=== PATIENT | female | born 1960 | race Two or more races ===

== ENCOUNTER 2020-03-08 19:12 | Outpatient (CLI) | payer OTHER | END 2020-03-08 19:13 | disposition critical access hospital (66) | LOC: EMS 19:12 | PROVIDERS: ATTEND Surgery | DX: T43.212A Poisoning by selective serotonin and norepinephrine reuptake inhibitors, intentional self-harm, initial encounter (principal); R53.83 Other fatigue | CPT/HCPCS: A0425; A0427 ==

== ENCOUNTER 2020-03-08 19:50 | Emergency (ER) | payer OTHER ==
--- NOTE | 2020-03-08 20:10 | ED Physician Documentation ---
History of Present Illness - Stated complaint Stated Complaint: OD - History obtained from History obtained from: Family, EMS - History of Present Illness Timing: Prior to arrival - Additonal information Additional information: 59-year-old female brought into the emergency department for an intentional overdose this evening. It is reported that she may have taken up to sixty 50 mg tablets of trazodone. She has a longstanding history of alcohol abuse as well as previous suicide attempt. She recently completed a 30-day inpatient stay for alcohol abuse and was discharged 3 weeks ago. She relapsed and began drinking 2 weeks ago. EMS reports that she got into an argument with her this evening. When he left the home she took the trazodone. When he returned home she told him what she had done. She also reportedly vomited white foam into the toilet. She had been very alert and oriented for EMS as well as hemodynamically stable When I speak to the patient she is somnolent but easily arousable. She admits to taking the bottle of trazodone. She states she wanted to go to sleep and never wake up. She states that today she has drank 5 or 6 beers. She said she thought it was a small enough volume that her would not notice. Review of Systems Constitutional: reports: Reviewed and negative Nose: reports: Reviewed and negative Throat: reports: Reviewed and negative Cardiac: reports: Reviewed and negative Respiratory: reports: Reviewed and negative GI: reports: Reviewed and negative : reports: Reviewed and negative Skin: reports: Reviewed and negative Musculoskeletal: reports: Reviewed and negative Neurologic: denies: Generalized weakness, Focal weakness, Numbness, Difficulty speaking, Near syncope, Syncope, Seizure, Confused Psychiatric: reports: Depressed, Suicidal, Other (ETOH abuse). denies: Hallucinations, Delusions, Anxiety Endocrine: reports: Reviewed and negative PD PAST MEDICAL HISTORY - Allergies Allergies/Adverse Reactions: Allergies Allergy/AdvReac Type Severity Reaction Status Date / Time Sulfa (Sulfonamide Allergy Unknown Verified 03/08/20 20:16 Antibiotics) PD ED PE NORMAL - General General: Alert and oriented X 3, No acute distress, Well developed/nourished - HEENT HEENT: Atraumatic, EOMI, Moist mucous membranes - Neck Neck: Supple, no meningeal sign, No adenopathy - Cardiac Cardiac: RRR, No murmur - Respiratory Respiratory: No respiratory distress, Clear bilaterally - Abdomen Abdomen: Normal bowel sounds, Soft, Non tender, Non distended - Back Back: No CVA TTP - Derm Derm: Normal color, Warm and dry, No rash - Extremities Extremities: No deformity, No tenderness to palpate - Neuro Neuro: Alert and oriented X 3, assistant winemaker 2-12 intact, No motor deficit, No sensory deficit Eye Opening: To Voice Motor: Obeys Commands Verbal: Oriented GCS Score: 14 Results - Vitals Vitals: Vital Signs - 24 hr 03/08/20 03/08/20 20:16 21:17 Temperature 36.5 C Heart Rate 50 L 79 Respiratory 16 14 Rate Blood Pressure 121/57 L 158/58 H O2 Saturation 98 100 Oxygen O2 Source Room air - EKG (time done) 2009 Rate: Rate (enter#) (92) Rhythm: NSR [place]: Normal Intervals: Normal [place], Prolonged QT (? 604) QRS: Normal Ischemia: Non specific changes Compare to prior EKG: Old EKG unavailable Computer interpretation: Agree with computer - Labs Labs: Laboratory Tests 03/08/20 03/08/20 03/08/20 20:01 20:18 20:18 WBC 5.8 RBC 4.42 Hgb 13.8 Hct 40.8 MCV 92.3 MCH 31.2 H MCHC 33.8 RDW 13.8 Plt Count 290 MPV 9.5 Neut # (Auto) 4.5 Lymph # (Auto) 0.8 L [place] # (Auto) 0.3 Eos # (Auto) 0.1 Baso # (Auto) 0.1 Absolute Nucleated RBC 0.00 Nucleated RBC % 0.0 Sodium 140 Potassium 3.0 L Chloride 103 Carbon Dioxide 23 Anion Gap 14.0 H BUN 18 Creatinine 0.8 Estimated GFR (MDRD) 74 L Glucose 111 H Calcium 8.5 Magnesium 2.4 Total Bilirubin 0.6 AST 24 ALT 23 Alkaline Phosphatase 69 Total Protein 6.9 Albumin 4.1 Globulin 2.8 Albumin/Globulin Ratio 1.5 Lipase 46 TSH Urine Color Urine Clarity Urine pH Ur Specific [place] Urine Protein Urine Glucose (UA) Urine Ketones Urine Occult Blood Urine Nitrite Urine Bilirubin Urine Urobilinogen Ur Leukocyte Esterase Ur Microscopic Review Urine Culture Comments Salicylates < 6.0 Urine Opiates Screen Ur Oxycodone Screen Urine Methadone Screen Ur Propoxyphene Screen Acetaminophen < 10 L Ur Barbiturates Screen Ur Tricyclics Screen Ur Phencyclidine Scrn Ur Amphetamine Screen U Methamphetamines Scrn U Benzodiazepines Scrn Urine Cocaine Screen U Cannabinoids Screen Ethyl Alcohol 161.3 03/08/20 03/08/20 03/08/20 20:18 20:18 21:10 WBC RBC Hgb Hct MCV MCH MCHC RDW Plt Count MPV Neut # (Auto) Lymph # (Auto) [place] # (Auto) Eos # (Auto) Baso # (Auto) Absolute Nucleated RBC Nucleated RBC % Sodium Potassium Chloride Carbon Dioxide Anion Gap BUN Creatinine Estimated GFR (MDRD) Glucose Calcium Magnesium Total Bilirubin AST ALT Alkaline Phosphatase Total Protein Albumin Globulin Albumin/Globulin Ratio Lipase TSH 2.00 Urine Color YELLOW Urine Clarity CLEAR Urine pH 6.0 Ur Specific [place] 1.020 Urine Protein NEGATIVE Urine Glucose (UA) NEGATIVE Urine Ketones NEGATIVE Urine Occult Blood NEGATIVE Urine Nitrite NEGATIVE Urine Bilirubin NEGATIVE Urine Urobilinogen 0.2 (NORMAL) Ur Leukocyte Esterase NEGATIVE Ur Microscopic Review NOT INDICATED Urine Culture Comments NOT INDICATED Salicylates Urine Opiates Screen NEGATIVE Ur Oxycodone Screen NEGATIVE Urine Methadone Screen NEGATIVE Ur Propoxyphene Screen NEGATIVE Acetaminophen Ur Barbiturates Screen NEGATIVE Ur Tricyclics Screen NEGATIVE Ur Phencyclidine Scrn NEGATIVE Ur Amphetamine Screen NEGATIVE U Methamphetamines Scrn NEGATIVE U Benzodiazepines Scrn NEGATIVE Urine Cocaine Screen NEGATIVE U Cannabinoids Screen NEGATIVE Ethyl Alcohol 163.0 PD MEDICAL DECISION MAKING - ED course Complexity details: reviewed results, re-evaluated patient, considered differential, d/w patient ED course: 59-year-old female presents to the emergency department with intentional suicidal attempt after taking a bottle of trazodone. Nursing staff has communicated with poison control. The biggest side effect of trazodone overdose is simply somnolence and sleepiness. We do need to monitor for hypotension and bradycardia. Routine mental health screening labs are pending at this time. Patient is alert and hemodynamically stable. Once we are able to medically clear her she will likely require tele-psych or DCR for further placement 2100: EKG is sinus however she may have a prolonged QTc syndrome 604.. I do note moderate hypokalemia with potassium at 3.0. We will institute potassium supplementation and recheck her EKG. Her magnesium is normal. Patient is sleeping but arousable. She is able to properly converse with me and reports that she has tried to kill herself in the past. She is upset that she has relapsed on alcohol again and tells me that she is planning to go to an inpatient alcohol facility on Thursday for another 30-day treatment stent. 2220: Patient will be signed out to nocturnal colleague Dr. Reynolds. She will follow-up on repeat alcohol level in order to make sure she can be medically cleared as well as repeating the EKG to ensure the QTC has normalized. Departure - Departure Clinical Impression: Suicide attempt, Overdose of trazodone, ETOH abuse
[2020-03-08] MEDS ORDERED: SODIUM CHLORIDE 0.9% 1,000 ML IV STA (20:22)
[2020-03-08 20:23] LABS: BASOPHILS # (AUTO) 0.1 10^3/uL (0.0-0.1); BASOPHILS % (AUTO) 1.4 %; EOSINOPHILS # (AUTO) 0.1 10^3/uL (0.0-0.7); HGB - HEMOGLOBIN 13.8 g/dL (12.0-16.0); LYMPHOCYTES # (AUTO) 0.8 10^3/uL (1.5-3.5); LYMPHOCYTES % (AUTO) 14.4 %; MEAN CORPUSCULAR HEMOGLOBIN 31.2 pg (27.0-31.0); MEAN CORPUSCULAR HGB CONC 33.8 g/dL (32.0-36.0); MEAN CORPUSCULAR VOLUME 92.3 fL (81.0-99.0); MEAN PLATELET VOLUME 9.5 fL (7.9-10.8); MONOCYTES # (AUTO) 0.3 10^3/uL (0.0-1.0); MONOCYTES % (AUTO) 5.2 %; NEUTROPHILS # (AUTO) 4.5 10^3/uL (1.5-6.6); NEUTROPHILS % (AUTO) 77.3 %; PLT - PLATELET COUNT 290 10^3/uL (130-450); RED BLOOD COUNT 4.42 10^6/uL (4.20-5.40); RED CELL DISTRIBUTION WIDTH 13.8 % (12.0-15.0); WHITE BLOOD COUNT 5.8 x10^3/uL (4.8-10.8)
[2020-03-08 20:40] LABS: ACETAMINOPHEN < 10 ug/mL (10-30); ALBUMIN 4.1 g/dL (3.2-5.5); ALBUMIN/GLOBULIN RATIO 1.5 (1.0-2.2); ALKALINE PHOSPHATASE 69 IU/L (42-121); ALT ALANINE AMINOTRANSFERASE 23 IU/L (10-60); AST ASPARTATE AMINOTRANSFERASE 24 IU/L (10-42); BILIRUBIN,TOTAL 0.6 mg/dL (0.2-1.0); BUN - BLOOD UREA NITROGEN 18 mg/dL (6-20); CALCIUM 8.5 mg/dL (8.5-10.3); CARBON DIOXIDE - CO2 23 mmol/L (21-32); CHLORIDE 103 mmol/L (101-111); CREATININE 0.8 mg/dL (0.4-1.0); GLUCOSE 111 mg/dL (70-100); LIPASE 46 U/L (22-51); SALICYLATE < 6.0 mg/dL; SODIUM 140 mmol/L (135-145); TOTAL PROTEIN 6.9 g/dL (6.7-8.2)
[2020-03-08] MEDS ORDERED: POTASSIUM CHLOR 10 MEQ/100 ML 10 MEQ/100 ML BAG IV STA (20:51)
[2020-03-08] MEDS ORDERED: POTASSIUM CHLOR 20 MEQ/100 ML 20 MEQ/100 ML BAG IV ONE (20:52)
[2020-03-08] MEDS ORDERED: POTASSIUM CHLOR 10 MEQ/100 ML 10 MEQ/100 ML BAG IV ONE ×2 (20:56→20:57)
[2020-03-08 21:22] LABS: MUDS CUTOFF CONCENTRATIONS CUTOFF CONC BELOW:
[2020-03-08 21:24] LABS: BILIRUBIN,URINE NEGATIVE (NEGATIVE); CLARITY,URINE CLEAR (CLEAR); GLUCOSE, URINE (UA) NEGATIVE (NEGATIVE); KETONES,URINE (UA) NEGATIVE (NEGATIVE); LEUKOCYTE ESTERASE, URINE NEGATIVE (NEGATIVE); NITRITE,URINE NEGATIVE (NEGATIVE); OCCULT BLOOD,URINE NEGATIVE (NEGATIVE); PROTEIN,URINE NEGATIVE (NEGATIVE); UROBILINOGEN,URINE 0.2 (NORMAL) E.U./dL (NORMAL)
[2020-03-08 21:34] LABS: AMPHETAMINE SCREEN,URINE NEGATIVE (NEGATIVE); BENZODIAZEPINES SCREEN, URINE NEGATIVE (NEGATIVE); COCAINE SCREEN URINE NEGATIVE (NEGATIVE); METHADONE SCREEN, URINE NEGATIVE (NEGATIVE); METHAMPHETAMINES SCREEN, URINE NEGATIVE (NEGATIVE); OPIATE SCREEN, URINE NEGATIVE (NEGATIVE); OXYCODONE SCREEN, URINE NEGATIVE (NEGATIVE); PROPOXYPHENE SCREEN, URINE NEGATIVE (NEGATIVE); TRICYCLIC ANTIDEPRESSANT,URINE NEGATIVE (NEGATIVE)
[2020-03-09] MEDS ORDERED: POTASSIUM CHLORIDE 20 MEQ TABLET PO STA (00:10)
[2020-03-09 01:48] LABS: CREATININE 0.8 mg/dL (0.4-1.0)
[2020-03-09] MEDS ORDERED: FOLIC ACID INJ 1 MG, THIAMINE INJ 100 MG, MAGNESIUM SULFATE 2 GM, MULTIVITAMIN 10 ML in... IV STA ×5 (07:13)
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
--- NOTE | 2020-03-10 10:00 | ED Physician Documentation ---
ED Addendum - Addendum Addendum: 03/10/20 09:58 59-year-old female with history of depression and alcohol abuse had a impulsive overdose of trazodone while intoxicated. She is no longer intoxicated she is no longer suicidal and arrangements have been made for the patient to go to a dual diagnosis treatment center in [place]. Her will escort her to the airport and someone will pick her up in [place] to take her to the [facility]. The patient indicates she is no longer suicidal and she is invested in her treatment as this appears to have happened after an argument with her regarding her drinking. The feels confident he will be able to take his down to the airport without incident and the couple are discharged from the emergency department after her COVID test was negative from [place] in [place].
[2020-03-10 10:55] VITALS: BP 110/77
== END 2020-03-10 11:16 | disposition home or self-care (01) ==
LOC: ED 19:50
DX: T43.212A Poisoning by selective serotonin and norepinephrine reuptake inhibitors, intentional self-harm, initial encounter (principal); R40.0 Somnolence; F10.129 Alcohol abuse with intoxication, unspecified; F32.9 Major depressive disorder, single episode, unspecified; F41.9 Anxiety disorder, unspecified; E87.6 Hypokalemia; R94.31 Abnormal electrocardiogram [ECG] [EKG]; Z20.828 Contact with and (suspected) exposure to other viral communicable diseases
CPT/HCPCS: 36415; 80048; 80320; 80329; 81003; 83690; 83735; 87635; 93005; 96361; 96365; 96366; 96367; 99284; A9270; G0426; J3411; 80053; 80306; 80307; 81001; 84443; 85025; 87086